=== PATIENT | male | born 1990 | race Two or more races ===

== ENCOUNTER 2017-12-08 11:23 | Inpatient (IN) | payer OTHER ==
[~2017-12-08] VITALS: Ht 167.6 cm; Wt 75.7 kg
--- NOTE | 2017-12-08 13:00 | NUR ---
MANAGER LVN REPORT NOTE RECEIVED REPORT FROM SHREYA YADAV FROM [facility],ETA IS 1400.ADMITTED WITH SEIZURE 3 TIMES FROM HOME.BROUGHT TO ER BY DAD AND FRIEND.HAD 2 TIMES SEIZURE AT HOSPITAL .ATIVAN GIVEN.WAS AGITATED AFTER.PUT HIM ON RESTRAINTS.ATIVAN GIVEN 2MG MORE TOTAL OF 4MG.PATIENT WAS CALM PER REPORT.AWAITING FOR ADMISSION.
--- NOTE | 2017-12-08 14:00 | NUR ---
RN ADMITTING NOTES PATIENT ARRIVED VIA GURNEY BY AMBULANCE.HE IS SLEEPING,AROUSE TO TOUCH AND NAME.ON TELE MONITOR SINUS TACHY OF 106.SKIN IS INTACT, EXCEPT GENERALIZED OLD SCAR .IV ON RFA#20.VITAL SIGNS STABLE. MADE AWARE ABOUT THE ADMISSION..ASSESSMENT DONE.SITTER IS AT BED SIDE.CALL LIGHT IN REACH.SAFETY AND SEIZURE PRECAUTIONS MAINTAINED,SRX3,BED IS LOCKED AND LOW POSITION CONTINUE TO MONITOR.
[2017-12-08 14:15] VITALS: BP 117/61
[2017-12-08 16:00] VITALS: BP 108/66
[2017-12-08] MEDS ORDERED: MAG HYDROX/AL HYDROX/SIMETH 30 ML UDC PO PRN (16:00)
[2017-12-08] MEDS ORDERED: ACETAMINOPHEN 325 MG TABLET PO PRN (16:00)
[2017-12-08] MEDS ORDERED: ONDANSETRON HCL/PF 4 MG/2 ML VIAL IVP PRN (16:00)
[2017-12-08] MEDS ORDERED: Z GUARD REMEDY 2 OZ OINT TP PRN (16:00)
[2017-12-08] MEDS ORDERED: HYDROCODONE/APAP 5/325MG 1 EACH TABLET PO PRN (16:00)
[2017-12-08] MEDS ORDERED: MAGNESIUM HYDROXIDE 30 ML UDC PO PRN (16:00)
[2017-12-08] MEDS ORDERED: ZOLPIDEM TARTRATE 5 MG TABLET PO PRN (16:00)
[2017-12-08] MEDS: LEVETIRACETAM (500MG) 1,000 MG in IV NS 0.9% 100 ML IV SCH (17:02)
[2017-12-08] MEDS: ENOXAPARIN SODIUM 40 MG/0.4 ML DISP.SYRIN SQ SCH (17:02)
[2017-12-08] MEDS: IV NS 0.9% 1,000 ML IV PRN (17:04)
--- NOTE | 2017-12-08 17:30 | NUR ---
INVESTIGATIVE WRITER NOTES SEEN BY DR HUDSON GOT NEW ORDERS.FAMILY CAME AND VISIT THE PATIENT.FOR VERY SHORT TIME.
[2017-12-08 17:45] LABS: BASOPHILS # (AUTO) 0.1 /CMM (0.0-0.2); BASOPHILS % (AUTO) 0.3 % (0.0-2.0); EOSINOPHILS % (AUTO) 0.1 % (0.0-6.0); HEMATOCRIT 34 % (39-51); HEMOGLOBIN 10.5 g/dL (13.5-17.5); LYMPHOCYTES # (AUTO) 1.8 /CMM (0.8-4.8); LYMPHOCYTES % (AUTO) 10.5 % (20.0-44.0); MEAN CORPUSCULAR HGB CONC 31 g/dl (31.0-36.0); MEAN CORPUSCULAR VOLUME 68 fL (80-96); MONOCYTES % (AUTO) 5.5 % (2.0-12.0); NEUTROPHILS # (AUTO) 14.5 /CMM (1.8-8.9); NEUTROPHILS % (AUTO) 83.6 % (43.0-81.0); PLATELET COUNT (AUTO) 173 /CMM (150-450); RDW COEFFICIENT OF VARIATION 19.1 (11.5-15.0); RED BLOOD CELL COUNT(AUTO) 4.93 MIL/uL (4.5-6.0); WHITE BLOOD COUNT (AUTO) 17.3 K/uL (4.3-11.0)
[2017-12-08 17:55] LABS: ALBUMIN 3.4 g/dL (3.4-5.0); CALCIUM, SERUM 8.4 mg/dL (8.5-10.1); CREATININE 0.7 mg/dL (0.6-1.3); POTASSIUM 3.6 mmol/L (3.5-5.1); TOTAL PROTEIN, SERUM 7.8 g/dL (6.4-8.2)
--- NOTE | 2017-12-08 19:00 | NUR ---
WIRE HANGER CLOSING NOTES PATIENT IS IN BED.SLEEPING WITH VITAL SIGNS STABLE.IV ON RFA WITH NS 75CC/HR.SITTER IS AT BED SIDE.CALL LIGHT IN REACH.SAFETY AND SEIZURE PRECAUTIONS MAINTAINED,SRX3,BED IS LOCKED AND LOW POSITION .WILL ENDORSE TO PM NURSE FOR JUDY.
[2017-12-08 19:36] LABS: BAND % (MANUAL) 2 % (0.0-5.0); BASOPHILS % (MANUAL) 0 % (0.0-2.0); EOSINOPHILS % (MANUAL) 0 % (0-4); LYMPHOCYTES % (MANUAL) 13 % (16-48); MONOCYTES % (MANUAL) 4 % (0-11.0); NEUTROPHILS % (MANUAL) 81 (42-76)
--- NOTE | 2017-12-08 19:40 | NUR ---
TRANSPORT ENGINEER OPENING NOTES RECEIVED PT SLEEPING IN BED. NO S/S OF SOB, ANY PAIN OR ACUTE CHANGES NOTED. CONFUSED, NPO, ON IVF, IV ACCESS TO RFA, INTACT PATENT, RUNNING WITH NS ORDERED. ON BED REST WITH 1:1 SITTER FOR SAFETY. ON SEIZURE PRECAUTIONS. ON O2 2LPM VIA NC, SATTING 98 %. ON TELE MONITORING ST 101. BED IN LOW LOCKED POSITION. CALL LIGHT WITHIN REACH. SAFETY MEASURES IN PLACE. NO SEIZURE ACTIVITY NOTED @ THIS TIME. WILL CONTINUE TO MONITOR VERY CLOSELY FOR ANY JUDY.
[2017-12-08 20:00] VITALS: BP 112/68
--- NOTE | 2017-12-08 20:19 | NUR ---
NEW ORDER PT'S CBC NOTED TO BE 17.3, DNP [place] AWARE, REVIWED THE LABS & PLACED NEW ORDER TO START ZOSYN FOR POSSIBLE ASPIRATION PNA. NOTED & CARRIED OUT. WILL CONTINUE TO MONITOR CLOSELY.
[2017-12-08] MEDS ORDERED: PIPERACILLIN /TAZOBACTAM 2.25 G VIAL IV ONE (21:49)
[2017-12-08] MEDS: PIPERACILLIN /TAZOBACTAM 4.5 G in IV D5W 50 ML IV SCH (21:53)
--- NOTE | 2017-12-08 23:45 | NUR ---
NEW ORDER PT NOTED NOT TO BE URINATING SINCE ARRIVED TO THE UNIT. OFFERED HIM A URINAL BUT REFUSED TO USE IT & GETS AGITATED WHEN ENCOURAGED TO USE THE URINAL. MD MADE AWARE WITH NEW ORDER TO DO BLADDER SCAN & STRAIGHT CATH IF BLADDER RESIDUAL > 400ML. NOTED & CARRIED OUT.
[2017-12-09] VITALS: BP 102/60
--- NOTE | 2017-12-09 00:30 | NUR ---
LINEN SUPPLY LOAD BUILDER NOTE ATTEMPTED TO DO IN & OUT CATH BUT PT STATED HE WILL USE THE URINAL BUT HE NEEDS TIME & HE DOESNT HAVE TO URINATE @ THIS TIME. GAVE HIM SPACE SO HE CAN USE THE URINAL IN PRIVATE HE REQUESTED IT. 1:1 SITTER @ BEDSIDE.
[2017-12-09 04:00] VITALS: BP 103/62
[2017-12-09] MEDS: LEVETIRACETAM (500MG) 1,000 MG in IV NS 0.9% 100 ML IV SCH ×2 (04:31→16:17)
[2017-12-09] MEDS ORDERED: PIPERACILLIN /TAZOBACTAM 2.25 G VIAL IV ONE (04:38)
[2017-12-09] MEDS: IV NS 0.9% 1,000 ML IV PRN (04:44)
[2017-12-09] MEDS: PIPERACILLIN /TAZOBACTAM 4.5 G in IV D5W 50 ML IV SCH (05:16)
--- NOTE | 2017-12-09 06:00 | NUR ---
IN & OUT CATH DONE PT KEPT WANTING TO USE THE URINAL EVERY TIME TRIED TO DO IN & OUT CATH BUT NEVER USED THE URINAL & KEPT REFUSING. EXPLAINED RISKS OF NOT URINATING FOR LONG TIME, BLADER WAS DISTENDED. PT AGREED TO HAVE IN & OUT CATH DONE WITH DARK YELLOW COLOR URINE, 750 ML OUTPUT. PT FELT BETTER & HIS BLADDER RELAXED. WILL INFORM AM RN TO MONITOR FOR OUTPUT.
[2017-12-09 06:49] LABS: BASOPHILS % (AUTO) 0.1 % (0.0-2.0); EOSINOPHILS % (AUTO) 0.6 % (0.0-6.0); HEMATOCRIT 34 % (39-51); HEMOGLOBIN 10.5 g/dL (13.5-17.5); LYMPHOCYTES % (AUTO) 8.4 % (20.0-44.0); MEAN CORPUSCULAR HGB CONC 31 g/dl (31.0-36.0); MEAN CORPUSCULAR VOLUME 69 fL (80-96); MONOCYTES # (AUTO) 0.6 /CMM (0.1-1.30); MONOCYTES % (AUTO) 4.7 % (2.0-12.0); NEUTROPHILS # (AUTO) 10.5 /CMM (1.8-8.9); NEUTROPHILS % (AUTO) 86.2 % (43.0-81.0); PLATELET COUNT (AUTO) 137 /CMM (150-450); RDW COEFFICIENT OF VARIATION 19.6 (11.5-15.0); RED BLOOD CELL COUNT(AUTO) 4.94 MIL/uL (4.5-6.0); WHITE BLOOD COUNT (AUTO) 12.1 K/uL (4.3-11.0)
--- NOTE | 2017-12-09 06:54 | NUR ---
BULLET LUBRICATING MACHINE OPERATOR CLOSING NOTES PT SLEPT WELL @ NIGHT. NO S/S OF SOB, ANY PAIN OR ACUTE CHANGES NOTED. CONFUSED, NPO, ON IVF, IV ACCESS TO RFA, INTACT PATENT, RUNNING WITH NS ORDERED. ON BED REST WITH 1:1 SITTER FOR SAFETY. ON SEIZURE PRECAUTIONS. PT REFUSES TO USE O2 VIA NC, KEPT REMOVING @ ALL TIMES, SATTING 96-99 % @ RA. ON TELE MONITORING ST 70. ALL NEEDS ATTENDED TO & MET. BED IN LOW LOCKED POSITION. CALL LIGHT WITHIN REACH. SAFETY MEASURES IN PLACE. NO SEIZURE ACTIVITY NOTED @ NIGHT TIME. WILL ENDORSE TO AM RN TO MONITOR VERY CLOSELY FOR ANY JUDY.
--- NOTE | 2017-12-09 07:12 | NUR ---
TD RN NOTES RECEIVED PT ON BED, SLEEPING. ON NASAL CANNULA SATURATING WELL. ON TELE MONITOR SR. WITH ONE ON ONE SITTER. PT IS STILL NPO. IV ACCESS ON RFA #20 NS @75CC/HR RUNNING WELL, IV ACCESS PATENT AND INTACT. PADDED SIDE RAILS. CALL LIGHT WITHIN REACH. HEAD OF BED ELEVATED. BED ALARM ON. WILL CONTINUE TO MONITOR PT CLOSELY.
[2017-12-09 07:16] LABS: ALBUMIN 3.1 g/dL (3.4-5.0); BILIRUBIN,TOTAL 1.2 mg/dL (0.2-1.0); CALCIUM, SERUM 8.2 mg/dL (8.5-10.1); CREATININE 0.8 mg/dL (0.6-1.3); MAGNESIUM 3.1 mg/dL (1.8-2.4); PHOSPHORUS 3.7 mg/dL (2.5-4.9); POTASSIUM 3.4 mmol/L (3.5-5.1); TOTAL PROTEIN, SERUM 7.3 g/dL (6.4-8.2)
[2017-12-09 08:00] VITALS: BP 97/55
[2017-12-09] MEDS: PANTOPRAZOLE 40 MG VIAL IV SCH (08:17)
[2017-12-09 10:31] LABS: EOSINOPHILS % (MANUAL) 1 % (0-4); LYMPHOCYTES % (MANUAL) 8 % (16-48); MONOCYTES % (MANUAL) 4 % (0-11.0); NEUTROPHILS % (MANUAL) 87 (42-76)
[2017-12-09] MEDS: POTASSIUM CL. PREMIX PERIPHER. 50 ML IV SCH ×2 (10:38→11:22)
[2017-12-09 12:00] VITALS: BP 119/77
[2017-12-09] MEDS: PIPERACILLIN /TAZOBACTAM 3.375 G in IV D5W 50 ML IV SCH ×3 (12:16→23:45)
[2017-12-09 16:00] VITALS: BP 119/83
[2017-12-09] MEDS: LORAZEPAM INJ 2 MG/ML VIAL IV PRN ×2 (16:09→23:35)
--- NOTE | 2017-12-09 18:59 | NUR ---
TD RN NOTES NO ACUTE CHANGES NOTED DURING THE SHIFT. NO SEIZURES. HEAD OF BED ELEVATED. SIDE RAILS UP. CALL LIGHT WITHIN REACH. NO RESIDUAL ON FEEDING. IV ACCESS INTACT. WILL ENDORSE TO THE PM NURSE FOR JUDY.
[2017-12-09 20:00] VITALS: BP 101/54
[2017-12-09] MEDS: ENOXAPARIN SODIUM 40 MG/0.4 ML DISP.SYRIN SQ SCH (21:09)
[2017-12-10] VITALS: BP 124/84
[2017-12-10 04:00] VITALS: BP 120/63
[2017-12-10] MEDS: LEVETIRACETAM (500MG) 1,000 MG in IV NS 0.9% 100 ML IV SCH (04:02)
[2017-12-10] MEDS: PIPERACILLIN /TAZOBACTAM 3.375 G in IV D5W 50 ML IV SCH ×4 (05:13→23:39)
[2017-12-10 07:07] LABS: CALCIUM, SERUM 8.5 mg/dL (8.5-10.1); CREATININE 0.7 mg/dL (0.6-1.3); POTASSIUM 3.6 mmol/L (3.5-5.1)
[2017-12-10 08:00] VITALS: BP 109/36
[2017-12-10] MEDS: PANTOPRAZOLE 40 MG VIAL IV SCH (08:42)
[2017-12-10 11:01] LABS: BASOPHILS % (AUTO) 0.1 % (0.0-2.0); EOSINOPHILS % (AUTO) 2.4 % (0.0-6.0); HEMATOCRIT 35 % (39-51); HEMOGLOBIN 10.9 g/dL (13.5-17.5); LYMPHOCYTES # (AUTO) 1.7 /CMM (0.8-4.8); LYMPHOCYTES % (AUTO) 18.7 % (20.0-44.0); MEAN CORPUSCULAR HGB CONC 31 g/dl (31.0-36.0); MEAN CORPUSCULAR VOLUME 69 fL (80-96); MONOCYTES # (AUTO) 0.6 /CMM (0.1-1.30); MONOCYTES % (AUTO) 6.6 % (2.0-12.0); NEUTROPHILS # (AUTO) 6.6 /CMM (1.8-8.9); NEUTROPHILS % (AUTO) 72.2 % (43.0-81.0); PLATELET COUNT (AUTO) 173 /CMM (150-450); RDW COEFFICIENT OF VARIATION 19.7 (11.5-15.0); RED BLOOD CELL COUNT(AUTO) 5.13 MIL/uL (4.5-6.0); WHITE BLOOD COUNT (AUTO) 9.1 K/uL (4.3-11.0)
[2017-12-10] MEDS ORDERED: CARB200T PO (11:07)
[2017-12-10] MEDS ORDERED: MAGNESIUM OXIDE 400 MG TABLET PO ONE (11:30)
--- NOTE | 2017-12-10 11:41 | NUR ---
Social service consult requested by PRISCILLA Quezada for substance abuse. Pt. is a 27 year old male who was admitted to [facility] for status epilepticus. Pt. resides at home with his family. ANIYA and case managers Edwin met with pt. bedside. Pt. declined to answer any questions at this time. SW is available, if needed.
[2017-12-10 12:00] VITALS: BP_SYST 112; BP_SYST 119; BP_DIAS 67; BP_DIAS 73
[2017-12-10] MEDS: CARBAMAZEPINE 200 MG TABLET PO SCH ×2 (13:17→17:40)
[2017-12-10 14:58] LABS: EOSINOPHILS % (MANUAL) 3 % (0-4); LYMPHOCYTES % (MANUAL) 17 % (16-48); MONOCYTES % (MANUAL) 7 % (0-11.0); NEUTROPHILS % (MANUAL) 73 (42-76)
[2017-12-10 16:00] VITALS: BP 107/84
[2017-12-10] MEDS ORDERED: LEVETIRACETAM SOL (5 ML) 100 MG/ML UDC GT SCH (17:00)
[2017-12-10] MEDS: IV NS 0.9% 1,000 ML IV PRN (18:57)
[2017-12-10 20:00] VITALS: BP_SYST 152; BP_SYST 154; BP_DIAS 77
--- NOTE | 2017-12-10 20:01 | NUR ---
RN NOTE PATIENT IN STABLE CONDITION AT THIS TIME CONTINUATION OF CARE ENDORSED TO PM RN, PATIENT REMAINS ALERT AND HOWEVER DISORIENTED AT THIS TIME NO SOB OR DISTRESS NOTED
[2017-12-10] MEDS: LEVETIRACETAM (250 MG) 250 MG TABLET PO SCH (21:28)
[2017-12-10] MEDS: ENOXAPARIN SODIUM 40 MG/0.4 ML DISP.SYRIN SQ SCH (21:34)
[2017-12-11] VITALS: BP 126/92
[2017-12-11 04:00] VITALS: BP 136/80
[2017-12-11] MEDS: PIPERACILLIN /TAZOBACTAM 3.375 G in IV D5W 50 ML IV SCH ×2 (05:27→11:30)
--- NOTE | 2017-12-11 06:56 | NUR ---
MERCANTILE AGENT NOTE PT REMAINED STABLE DURING SHIFT. NO ACUTE DISTRESS NOTED. ON SEIZURE PRECAUTIONS. ALL NEEDS ATTENDED TO PROMPTLY. ALL SAFETY MEASURES IN PLACE. CALL LIGHT WITHIN REACH. WILL ENDORSE TO NEXT SHIFT FOR CONTINUITY OF CARE.
--- NOTE | 2017-12-11 07:11 | NUR ---
MS RN OPENING NOTES RECEIVED PT FROM NIGHTSHIFT NURSE IN STABLE CONDITION. PT IS A/O X3. NO SOB OR SIGNS OF DISTRESS NOTED. BREATHING IS EVEN AND UNLABORED. PT IS ON RA AND SATING WELL. NO SEIZURES WITNESSED OR REPORTED DURING THE NIGHT, IV TO RIGHT FA IS NOTED TO BE PATENT AND INTACT. NO REDNESS OR SIGNS OF INFILTRATION NOTED. BED IN LOW LOCKED POSITION, SIDE RAILS UP X2, CALL LIGHT WITHIN REACH, SEIZURE PRECAUTIONS INITIATED. WILL CONTINUE TO MONITOR
[2017-12-11 08:00] VITALS: BP_SYST 121; BP_SYST 136; BP_DIAS 79; BP_DIAS 80
[2017-12-11] MEDS: LEVETIRACETAM (250 MG) 250 MG TABLET PO SCH (09:13)
[2017-12-11] MEDS: PANTOPRAZOLE 40 MG VIAL IV SCH (09:13)
[2017-12-11] MEDS: CARBAMAZEPINE 200 MG TABLET PO SCH (09:13)
[2017-12-11] MEDS: IV NS 0.9% 1,000 ML IV PRN (11:30)
[2017-12-11] MEDS ORDERED: LEVE250T2 PO (14:10)
--- NOTE | 2017-12-11 14:52 | NUR ---
MS MOTORCYCLE DELIVERY DRIVER NOTES PT WAS DISCHARGED FROM FACILITY IN STABLE CONDITION. ALL NEEDS WERE MET DURING SHIFT AND ORDERS CARRIED OUT ACCORDINGLY. ALL DUE MEDS. WERE GIVEN. NO SEIZURES WITNESSED OR REPORTED PRIOR TO DISCHARGE. VITALS REMAINED STABLE. IV SUCCESSFULLY REMOVED BY CHARGE NURSE. DISCHARGE EDUCATION PROVIDED UTILIZING [employer] MATERIALS AND DISCHARGE INSTRUCTIONS. PT VERBALIZED FULL UNDERSTANDING OF DISCHARGE MATERIALS AND SIGNED ALL D/C PAPERWORK. PRESCRIPTION REVIEWED AND GIVEN TO PT ALONG WITH COPIES OF D/C PAPERWORK. PT WAS SAFELY ESCORTED TO [facility] AND LEFT VIA A PRIVATE VEHICLE DRIVEN BY HIS UNCLE. HE LEFT WITH ALL BELONGINGS
== END 2017-12-11 14:44 | disposition home or self-care (01) | DRG 53 ==
LOC: TELE1 14:34 → TELE-TD 12-09 00:41 → TELE1 12-10 11:07 → MEDSG1 12-11 10:47
PROVIDERS: ADMIT Hospitalist; ATTEND Hospitalist
DX: G40.901 Epilepsy, unspecified, not intractable, with status epilepticus (principal); J69.0 Pneumonitis due to inhalation of food and vomit; G93.89 Other specified disorders of brain; I69.354 Hemiplegia and hemiparesis following cerebral infarction affecting left non-dominant side; D72.829 Elevated white blood cell count, unspecified; Z91.14 Patient's other noncompliance with medication regimen; F10.10 Alcohol abuse, uncomplicated; Y90.9 Presence of alcohol in blood, level not specified; F17.200 Nicotine dependence, unspecified, uncomplicated; Z79.899 Other long term (current) drug therapy; E87.6 Hypokalemia; F19.10 Other psychoactive substance abuse, uncomplicated; Z98.890 Other specified postprocedural states; J98.11 Atelectasis; E83.42 Hypomagnesemia
CPT/HCPCS: 36415; 36569; 71045-TC; 80048-TC; 80053-TC; 80061-TC; 80156-TC; 80305; 83735-TC; 84100-TC; 85025-TC; 87040-TC; 87081-TC; 87086-TC; 92521; C9113; J1650; J1953; J2060; J2543; J7030; J7040; J7060; Z7610

== ENCOUNTER 2018-01-07 15:35 | Emergency (ER) | payer OTHER ==
[~2018-01-07] VITALS: Ht 175.3 cm; Wt 83.0 kg
[~2018-01-07 15:35] MED LIST: CARB200T PO; LEVE250T2 PO
--- NOTE | 2018-01-07 16:00 | NUR ---
PATIENT TO ED DT RLE PAIN. Hx OF RLE Fx.
[2018-01-07] MEDS ORDERED: oxyCODONE/APAP (5/325 MG) 1 UDTAB TABLET PO ONE (17:00)
[2018-01-07] MEDS ORDERED: oxyCODONE/APAP (5/325 MG) 1 UDTAB TABLET ONE (17:05)
[2018-01-07 17:09] VITALS: BP 132/80
--- NOTE | 2018-01-07 17:09 | NUR ---
Patient discharged to home in stable condition. Written and verbal after care instructions given. Patient verbalizes understanding of instruction.
== END 2018-01-07 17:10 | disposition home or self-care (01) ==
LOC: ER 15:37
DX: S82.891D Other fracture of right lower leg, subsequent encounter for closed fracture with routine healing (principal); Z98.890 Other specified postprocedural states; X58.XXXD Exposure to other specified factors, subsequent encounter
CPT/HCPCS: 29515; 99283; A4606; Z7610